=== PATIENT | female | born 1940 | race Native Hawaiian/Other Pacific Islander ===

== ENCOUNTER 2016-08-08 11:29 | Outpatient (CLI) | payer OTHER | END 2016-08-08 19:20 | disposition home or self-care (01) | LOC: RAD 11:29 | DX: M25.562 Pain in left knee (principal) ==

== ENCOUNTER 2016-08-15 12:19 | Outpatient (CLI) | payer OTHER | END 2016-08-15 19:14 | disposition home or self-care (01) | LOC: RAD 12:19 | DX: R06.02 Shortness of breath (principal) ==

== ENCOUNTER 2016-11-09 09:34 | Outpatient (CLI) | payer OTHER | END 2016-11-09 10:40 | disposition home or self-care (01) | LOC: US 09:34 | DX: R10.31 Right lower quadrant pain (principal); R19.09 Other intra-abdominal and pelvic swelling, mass and lump ==

== ENCOUNTER 2017-06-14 14:37 | Outpatient (CLI) | payer OTHER | END 2017-06-14 15:40 | disposition home or self-care (01) | LOC: RAD 14:37 | DX: J44.9 Chronic obstructive pulmonary disease, unspecified (principal) ==

== ENCOUNTER 2017-06-19 09:34 | Outpatient (CLI) | payer OTHER | END 2017-06-19 19:47 | disposition home or self-care (01) | LOC: CT 09:34 | DX: J98.09 Other diseases of bronchus, not elsewhere classified (principal) ==

== ENCOUNTER 2017-07-02 11:30 | Outpatient (CLI) | payer OTHER | END 2017-07-02 19:21 | disposition home or self-care (01) | LOC: US 11:30 | DX: E04.2 Nontoxic multinodular goiter (principal) ==

== ENCOUNTER 2018-02-11 08:57 | Outpatient (CLI) | payer OTHER | END 2018-02-11 19:16 | disposition home or self-care (01) | LOC: CT 08:57 | DX: K59.00 Constipation, unspecified (principal); R10.9 Unspecified abdominal pain ==

== ENCOUNTER 2018-09-19 09:23 | Outpatient (CLI) | payer OTHER | END 2018-09-19 20:47 | disposition home or self-care (01) | LOC: US 09:23 | DX: J41.0 Simple chronic bronchitis (principal) ==

== ENCOUNTER 2018-10-01 08:46 | Outpatient (CLI) | payer OTHER | END 2018-10-01 19:15 | disposition home or self-care (01) | LOC: CT 08:46 | DX: K45.8 Other specified abdominal hernia without obstruction or gangrene (principal) | CPT/HCPCS: 36415; 82565; 84520; Q9963 ==

== ENCOUNTER 2019-01-17 08:17 | Outpatient (CLI) | payer OTHER ==
[2019-01-17] MEDS ORDERED: SPIRIVA RE1.25 MCG/A INH (08:42)
[2019-01-17] MEDS ORDERED: TIROSINT50 MCG PO (08:44)
[2019-01-17] MEDS ORDERED: ROSU10TA PO (08:44)
[2019-01-17] MEDS ORDERED: ANAS1TAB PO (08:45)
[2019-01-17] MEDS ORDERED: APIX1TAB PO (08:45)
[2019-01-17] MEDS ORDERED: DILT-XR240 MG PO (08:47)
[2019-01-17] MEDS ORDERED: LIPITOR10 MG PO (09:41)
[2019-01-17] MEDS ORDERED: RANO1000T PO (09:41)
[2019-01-17] MEDS ORDERED: ANORO ELLIPTA 61 AER INH (09:42)
[2019-01-17] MEDS ORDERED: MONT10TA PO (09:42)
[2019-01-17] MEDS ORDERED: TYLENOL325 MG PO (09:43)
== END 2019-01-17 08:21 | disposition short-term general hospital (02) ==
LOC: AMB 08:17
DX: R52 Pain, unspecified (principal); W18.39XA Other fall on same level, initial encounter; Y93.89 Activity, other specified; Y92.015 Private garage of single-family (private) house as the place of occurrence of the external cause
CPT/HCPCS: A0425; A0427

== ENCOUNTER 2019-01-17 08:25 | Emergency (ER) | payer OTHER ==
[~2019-01-17] VITALS: Ht 165.1 cm; Wt 77.1 kg
[2019-01-17 08:31] VITALS: TEMP 98
[2019-01-17] MEDS ORDERED: SPIRIVA RE1.25 MCG/A INH (08:42)
[2019-01-17] MEDS ORDERED: ROSU10TA PO (08:44)
[2019-01-17] MEDS ORDERED: TIROSINT50 MCG PO (08:44)
[2019-01-17] MEDS ORDERED: ANAS1TAB PO (08:45)
[2019-01-17] MEDS ORDERED: APIX1TAB PO (08:45)
[2019-01-17] MEDS ORDERED: DILT-XR240 MG PO (08:47)
[2019-01-17] MEDS ORDERED: RANO1000T PO (09:41)
[2019-01-17] MEDS ORDERED: LIPITOR10 MG PO (09:41)
[2019-01-17] MEDS ORDERED: ANORO ELLIPTA 61 AER INH (09:42)
[2019-01-17] MEDS ORDERED: MONT10TA PO (09:42)
[2019-01-17] MEDS ORDERED: TYLENOL325 MG PO (09:43)
[2019-01-17 11:37] VITALS: BP 168/82
== END 2019-01-17 11:37 | disposition home or self-care (01) ==
LOC: ED 08:25
DX: S22.32XA Fracture of one rib, left side, initial encounter for closed fracture (principal); W10.8XXA Fall (on) (from) other stairs and steps, initial encounter; Y92.89 Other specified places as the place of occurrence of the external cause
CPT/HCPCS: 99283

== ENCOUNTER 2019-02-04 14:51 | Outpatient (CLI) | payer OTHER ==
[~2019-02-04 14:51] MED LIST: ANAS1TAB PO; ANORO ELLIPTA 61 AER INH; APIX1TAB PO; DILT-XR240 MG PO; LIPITOR10 MG PO; MONT10TA PO; RANO1000T PO; ROSU10TA PO; SPIRIVA RE1.25 MCG/A INH; TIROSINT50 MCG PO; TYLENOL325 MG PO
== END 2019-02-04 20:14 | disposition home or self-care (01) ==
LOC: RAD 14:51
DX: S22.32XA Fracture of one rib, left side, initial encounter for closed fracture (principal)

== ENCOUNTER 2019-09-10 00:56 | Emergency (ER) | payer OTHER ==
[~2019-09-10] VITALS: Ht 162.6 cm; Wt 77.1 kg
[2019-09-10 01:31] LABS: PLATELET COUNT 228 K/uL (152-353)
[2019-09-10 01:40] LABS: POTASSIUM 4.3 mmol/L (3.6-5.2)
[2019-09-10 02:38] VITALS: BP 138/45
== END 2019-09-10 02:38 | disposition home or self-care (01) ==
LOC: ED 00:56
DX: R11.2 Nausea with vomiting, unspecified (principal); E86.9 Volume depletion, unspecified
CPT/HCPCS: 36415; 80053; 82272; 85027; 96360; 96375; 96376; 99284; J2405

== ENCOUNTER 2019-12-24 14:47 | Outpatient (CLI) | payer OTHER ==
[2019-12-24 15:16] LABS: POTASSIUM 4.5 mmol/L (3.6-5.2)
== END 2019-12-24 22:03 | disposition home or self-care (01) ==
LOC: LABW 14:47
PROVIDERS: Internal Medicine Cardiovascular Disease
DX: Z79.899 Other long term (current) drug therapy (principal); R06.02 Shortness of breath
CPT/HCPCS: 36415; 80048; 83880

== ENCOUNTER 2020-09-16 09:59 | Outpatient (CLI) | payer OTHER | END 2020-09-16 22:01 | disposition home or self-care (01) | LOC: CT 09:59 | PROVIDERS: ATTEND Nurse Practitioner Family | DX: R10.84 Generalized abdominal pain (principal); M54.89 Other dorsalgia; R31.9 Hematuria, unspecified ==

== ENCOUNTER 2020-11-22 14:30 | Outpatient (CLI) | payer OTHER | END 2020-11-22 21:07 | disposition home or self-care (01) | LOC: RAD 14:30 | PROVIDERS: ATTEND Internal Medicine Pulmonary Disease | DX: J41.0 Simple chronic bronchitis (principal) ==

== ENCOUNTER 2020-12-29 13:31 | Outpatient (CLI) | payer OTHER ==
[2020-12-29 13:59] LABS: PLATELET COUNT 249 K/uL (152-353)
[2020-12-29 14:39] LABS: POTASSIUM 4.3 mmol/L (3.6-5.2)
== END 2020-12-29 23:00 | disposition home or self-care (01) ==
LOC: LABW 13:31
PROVIDERS: ATTEND Internal Medicine
DX: N18.32 Chronic kidney disease, stage 3b (principal)
CPT/HCPCS: 36415; 80053; 81000; 82043; 82306; 82330; 82570; 83735; 83970; 84100; 84155; 85027

== ENCOUNTER 2021-05-02 12:54 | Emergency (ER) | payer OTHER ==
[~2021-05-02] VITALS: Ht 162.6 cm; Wt 70.3 kg
[2021-05-02 13:04] VITALS: TEMP 97.8
[2021-05-02 13:49] LABS: PLATELET COUNT 228 K/uL (152-353)
[2021-05-02 15:05] VITALS: BP 156/88
== END 2021-05-02 15:05 | disposition home or self-care (01) ==
LOC: ED 12:54
PROVIDERS: Emergency Medicine
DX: J20.8 Acute bronchitis due to other specified organisms (principal); Z20.822 Contact with and (suspected) exposure to COVID-19
CPT/HCPCS: 80053; 83880; 84484; 85027; 87635; 93005; 96372; 99283; J2920; U0003

== ENCOUNTER 2021-06-08 14:02 | Outpatient (CLI) | payer OTHER | END 2021-06-08 19:01 | disposition home or self-care (01) | LOC: RAD 14:02 | PROVIDERS: ATTEND Nurse Practitioner Family | DX: R05.8 Other specified cough (principal) ==

== ENCOUNTER 2021-07-05 12:15 | Outpatient (CLI) | payer OTHER ==
[2021-07-05 12:41] LABS: PLATELET COUNT 267 K/uL (152-353)
[2021-07-05 12:55] LABS: POTASSIUM 3.8 mmol/L (3.6-5.2)
== END 2021-07-05 18:59 | disposition home or self-care (01) ==
LOC: LABW 12:15
PROVIDERS: ATTEND Nurse Practitioner
DX: N18.32 Chronic kidney disease, stage 3b (principal); R82.998 Other abnormal findings in urine
CPT/HCPCS: 36415; 80053; 81000; 82043; 82306; 82330; 82570; 83735; 83970; 84100; 84155; 85027; 87077; 87086; 87088; 87186

== ENCOUNTER 2021-08-31 11:19 | Emergency (ER) | payer OTHER ==
[~2021-08-31] VITALS: Ht 162.6 cm; Wt 70.3 kg
[2021-08-31 14:04] VITALS: BP 123/68; TEMP 97.8
== END 2021-08-31 14:04 | disposition home or self-care (01) ==
LOC: ED 11:19
PROC: 0HQ1XZZ Repair Face Skin, External Approach (ICD-10-PCS; principal; 2021-08-31)
DX: S01.81XA Laceration without foreign body of other part of head, initial encounter (principal); S51.812A Laceration without foreign body of left forearm, initial encounter; S81.812A Laceration without foreign body, left lower leg, initial encounter; W18.39XA Other fall on same level, initial encounter; Y92.096 Garden or yard of other non-institutional residence as the place of occurrence of the external cause
CPT/HCPCS: 90471; 90715; 99283

== ENCOUNTER 2021-09-09 11:47 | Outpatient (CLI) | payer OTHER | END 2021-09-09 20:48 | disposition home or self-care (01) | LOC: RAD 11:47 | PROVIDERS: ATTEND Family Medicine | DX: M25.562 Pain in left knee (principal); W19.XXXA Unspecified fall, initial encounter ==

== ENCOUNTER 2021-10-18 13:26 | Emergency (ER) | payer OTHER ==
[~2021-10-18] VITALS: Ht 162.6 cm; Wt 70.3 kg
[2021-10-18 14:20] LABS: PLATELET COUNT 258 K/uL (152-353)
[2021-10-18 14:40] LABS: PARTIAL THROMBOPLASTIN TIME 26.6 SECONDS (24.5-33.6)
[2021-10-18 14:42] LABS: POTASSIUM 4.2 mmol/L (3.6-5.2)
[2021-10-18 17:20] VITALS: BP 141/59; TEMP 98.1
== END 2021-10-18 17:20 | disposition short-term general hospital (02) ==
LOC: ED 13:26
PROVIDERS: Emergency Medicine
PROC: 0T9B70Z Drainage of Bladder with Drainage Device, Via Natural or Artificial Opening (ICD-10-PCS; principal; 2021-10-18)
PROC: 2W3CX1Z Immobilization of Right Lower Arm using Splint (ICD-10-PCS; 2021-10-18)
DX: S72.141A Displaced intertrochanteric fracture of right femur, initial encounter for closed fracture (principal); S52.531A Colles' fracture of right radius, initial encounter for closed fracture; W18.39XA Other fall on same level, initial encounter; Y92.098 Other place in other non-institutional residence as the place of occurrence of the external cause; Z11.52 Encounter for screening for COVID-19
CPT/HCPCS: 51702; 80053; 82550; 83880; 84484; 85027; 85610; 85730; 87635; 93005; 96374; 96375; 96376; 99284; J1170; J2405; U0003

== ENCOUNTER 2022-02-22 11:46 | Outpatient (CLI) | payer OTHER ==
[2022-02-22 12:24] LABS: PLATELET COUNT 288 K/uL (152-353)
[2022-02-22 13:39] LABS: POTASSIUM 3.9 mmol/L (3.6-5.2)
== END 2022-02-22 18:59 | disposition home or self-care (01) ==
LOC: LABW 11:46
PROVIDERS: ATTEND Internal Medicine
DX: N18.32 Chronic kidney disease, stage 3b (principal)
CPT/HCPCS: 36415; 80053; 81002; 82043; 82306; 82330; 82570; 83735; 83970; 84100; 84156; 85027

== ENCOUNTER 2022-05-16 12:58 | Outpatient (CLI) | payer OTHER | END 2022-05-16 19:19 | disposition home or self-care (01) | LOC: US 12:58 | PROVIDERS: ATTEND Nurse Practitioner Family | DX: M79.605 Pain in left leg (principal) ==

== ENCOUNTER 2022-07-04 08:29 | Outpatient (CLI) | payer OTHER | END 2022-07-04 20:21 | disposition home or self-care (01) | LOC: CT 08:29 | PROVIDERS: ATTEND Nurse Practitioner Family | DX: R19.05 Periumbilic swelling, mass or lump (principal) | CPT/HCPCS: 36415; 82565; 84520; Q9963 ==

== ENCOUNTER 2022-07-31 10:38 | Outpatient (CLI) | payer OTHER | END 2022-07-31 20:16 | disposition home or self-care (01) | LOC: RAD 10:38 | PROVIDERS: ATTEND Nurse Practitioner Family | DX: R93.5 Abnormal findings on diagnostic imaging of other abdominal regions, including retroperitoneum (principal) ==

== ENCOUNTER 2022-12-07 10:42 | Outpatient (CLI) | payer OTHER | END 2022-12-07 18:58 | disposition home or self-care (01) | LOC: RAD 10:42 | PROVIDERS: ATTEND Internal Medicine Pulmonary Disease | DX: J43.2 Centrilobular emphysema (principal) ==

== ENCOUNTER 2023-01-12 08:35 | Outpatient (CLI) | payer OTHER | END 2023-01-12 19:11 | disposition home or self-care (01) | LOC: CT 08:35 | PROVIDERS: ATTEND Surgery | DX: K42.9 Umbilical hernia without obstruction or gangrene (principal); R10.9 Unspecified abdominal pain | CPT/HCPCS: 36415; 82565; 84520; Q9963 ==